=== PATIENT | male | born 1980 ===

== ENCOUNTER 2016-12-06 10:53 | Observation (INO) | payer OTHER ==
[~2016-12-06] VITALS: Ht 180.3 cm; Wt 77.1 kg
--- NOTE | 2016-12-06 11:08 | NUR ---
C/O MID- EPIGASTRIC PAIN, WITH NASUEA AND VOMITING X 6 SINCE LAST PM. NO DIARRHEA, STATES HE IS NOT PASSING GAS.
--- NOTE | 2016-12-06 11:33 | NUR ---
APPRECIATE TRIAGE NOTE. PT TO [facility]. THAI STOUT TO BEDSIDE FOR EVAL.
--- NOTE | 2016-12-06 11:51 | ED GI/GU/ABDOMINAL COMPLAINT ---
History of Present Illness General Chief Complaint: Abdominal Pain/Flank Pain Stated Complaint: ABD PAIN ,NAUSEA, VOMITING Source: patient, family Exam Limitations: no limitations Allergies Coded Allergies: No Known Drug Allergies (12/06/16) Reconcile Medications No Known Home Medications Triage Note: C/O MID- EPIGASTRIC PAIN, WITH NASUEA AND VOMITING X 6 SINCE LAST PM. NO DIARRHEA, STATES HE IS NOT PASSING GAS. Triage Nurses Notes Reviewed? 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 He states he has had similar episodes of this in the past that occur every 6 months over the last few years. He started getting a burning epigastric pain that is nonradiating, has approximately 12-24 hours of vomiting and abdominal pain and distention and then symptoms subside. The episode that started yesterday with similar to his previous episodes, sudden onset of abdominal pain, vomited approximately 6 times , unable to eat or drink, has not had a bowel movement since yesterday, he has not passed gas. Symptoms occurred after eating spicy food however does not always occur after eating spicy food and He tried Pepcid without relief. He denies any fever or flulike illness, no pain radiating into the chest or into the shoulders, no pain radiating into the back. No previous abdominal surgeries. He states that prior to these episodes he gets abnormal stool when he feels constipated and stools become smaller and harder to pass, which was the case 2 days ago as well prior to these symptoms starting. He is nauseous at this time, symptoms are moderate to severe (NANCY CASTANEDA) Vital Signs & Intake/Output Vital Signs & Intake/Output Vital Signs Date Time Temp Pulse Resp B/P Pulse O2 O2 Flow FiO2 Ox Delivery Rate 12/06 1618 69 18 146/87 97 Room Air 12/06 1108 98.4 96 18 129/84 100 Room Air Past History Travel History Traveled to [place] past 21 day No Medical History Any Pertinent Medical History? see below for history Neurological: NONE EENT: NONE Cardiovascular: NONE Respiratory: NONE Gastrointestinal: NONE Hepatic: NONE Renal: NONE Musculoskeletal: NONE Psychiatric: NONE Endocrine: NONE Surgical History Surgical History: none Psychosocial History What is your primary language Bulgarian Tobacco Use: Never used ETOH Use: denies use Family History Hx Contributory? No (NANCY CASTANEDA) Review of Systems Review of Systems Constitutional: Reports: see HPI. EENTM: Reports: no symptoms. Respiratory: Reports: no symptoms. Cardiovascular: Reports: no symptoms. GI: Reports: see HPI. Genitourinary: Reports: no symptoms. Musculoskeletal: Reports: no symptoms. Skin: Reports: no symptoms. Neurological/Psychological: Reports: no symptoms. Hematologic/Endocrine: Reports: no symptoms. Immunologic/Allergic: Reports: no symptoms. All Other Systems: Reviewed and Negative (NANCY CASTANEDA) Physical Exam Physical Exam General Appearance: well developed/nourished Head: atraumatic, normal appearance Eyes: Bilateral: normal appearance, PERRL. Ears, Nose, Throat, Mouth: hearing grossly normal, DRY MUCOUS MEMBRANES Neck: normal inspection Respiratory: normal breath sounds, chest non-tender, no respiratory distress Cardiovascular: regular rate/rhythm Gastrointestinal: DECREASED BOWEL SOUNDS, TENDERNESS IN THE EPIGASTRIUM, NOTICED DISTENTION, NO GUARDING, NO ORGANOMEGALY Back: normal inspection Extremities: normal range of motion, evidence of injury Neurologic/Psych: no motor/sensory deficits, awake, alert, oriented x 3, normal mood/affect Skin: warm/dry, pallor Core Measures ACS in differential dx? No Severe Sepsis Present: No Septic Shock Present: No (NANCY CASTANEDA) Progress Differential Diagnosis: AAA, AMI, appendicitis, biliary colic, bowel obstruction , colon cancer, cholecystitis, diverticulitis, epididymitis, esophageal varices, gastritis, hepatitis, hernia, hemorrhoids, ischemic bowel, inflamm bowel dis, Joanne-Yesy tear, orchitis, pancreatitis, prostatitis, peptic ulcer, PUD/GERD, perforated viscous, pyelonephritis, SBO, STD, testicular torsion, ureterolithiasis, urinary retention, urethritis, UTI/pyelo Diagnostic Imaging: Viewed by Me: CT Scan. Discussed w/RAD: CT Scan. Radiology Impression: PATIENT: JEFF PISANO PRESENT AGE: 36 PATIENT ACCOUNT NO: [id number] : 81 LOCATION: [facility] ORDERING PHYSICIAN: NANCY ANDRE SERVICE DATE: 12/06/161149 EXAM TYPE: CAT - CT ENTEROGRAPHY EXAMINATION: CT ENTEROGRAPHY WITH CONTRAST CLINICAL INFORMATION: Abdominal pain. Nausea and vomiting with epigastric pain. COMPARISON: None. TECHNIQUE: Multidetector volumetric imaging of the abdomen and pelvis was performed after administration of 95 mL of Optiray 320 IV contrast. 1300 mL of volumen was also ingested prior to the examination. Coronal and sagittal reformatted images were obtained at the technologist workstation. FINDINGS: The lung bases are clear. The visualized cardiac structures are unremarkable. The liver is normal in size, shape, and attenuation. No focal lesion or intrahepatic biliary ductal dilatation. The gallbladder is unremarkable. The spleen, adrenal glands, and pancreas are unremarkable. The kidneys demonstrate symmetric nephrograms. No hydronephrosis or nephrolithiasis. No perinephric stranding. The ureters are decompressed. The bladder is unremarkable. The stomach is distended with fluid, without wall thickening. The small bowel is not well distended with fluid, resulting in a suboptimal enterography evaluation. There is fecalization of the distal ileum suggesting slow transit. No evidence for small bowel wall thickening or inflammatory change. The appendix is abnormal. The appendix is dilated, measuring 1.3 cm in diameter. There is mild wall hyperemia with adjacent inflammatory change. Findings are consistent with acute appendicitis. No fluid collection or free air. No additional evidence for colonic wall thickening or inflammatory change. The prostate and seminal vesicles are unremarkable. No lymphadenopathy. The vascular structures are unremarkable. No acute or suspicious osseous abnormality. IMPRESSION: 1. Acute appendicitis. No free air or fluid collection. 2. Suboptimal CT enterography, as the stomach remains fluid-filled, without distention of the small bowel. No bowel wall thickening. Fecalization of the distal ileum is noted suggesting slow transit. This critical result was discussed with NANCY STOUT PA-C by telephone at 12/06/2016 1:35 PM and it was ascertained that the content and urgency of the report was understood at the time of direct communication. DICTATED BY: JACE HOLMAN, TANJA DATE/TIME DICTATED:12/06/161322 PHOTOGRAPHERS' MODEL:JOSÉ DATE/TIME TRANSCRIBED:12/06/161322 Initial ED EKG: none Comments: Treated with IV fluids, IV Zofran, IV Protonix [address] Lyons, will order CT enterography, question of Crohn's disease CT scan reviewed with radiologist, positive appendicitis, discussed with Dr. Schwarz, we'll treat with 3 g Unasyn IV and patient to OR this evening. Discussed with surgical PA, discussed with Dr. Alejo (NANCY CASTANEDA) Plan of Care: Orders Procedure Date/time Status Saline Lock 12/06 114 Active PROTHROMBIN TIME 12/06 1141 Complete LIPASE 12/06 1141 Complete COMPREHENSIVE METABOLIC PANEL 12/06 1141 Complete CBC WITHOUT DIFFERENTIAL 12/06 1141 Complete AMYLASE 12/06 1141 Complete URINALYSIS 12/06 1111 Complete Laboratory Tests 12/06/16 1247: Urine Color YEL, Urine Clarity CLEAR, Urine pH 7.0, Ur Specific [place] 1.010, Urine Protein NEG, Urine Ketones NEG, Urine Nitrite NEG, Urine Bilirubin NEG, Urine Urobilinogen 0.2, Ur Leukocyte Esterase NEG, Ur Microscopic SEDIMENT EXAMINED, Urine RBC 1-3, Ur Epithelial Cells FEW, Urine Hemoglobin TRACE-LYSED H, Urine Glucose NEG 12/06/16 1147: Anion Gap 16, Estimated GFR > 60, BUN/Creatinine Ratio 13.8, Glucose 121 H, Calcium 9.9, Total Bilirubin 1.0, AST 25, ALT 42, Alkaline Phosphatase 113, Total Protein 8.3 H, Albumin 4.9, Globulin 3.4, Albumin/Globulin Ratio 1.4, Amylase 55, Lipase 62, PT 12.7 H, INR 1.21 H, CBC w Diff NO MAN DIFF REQ, RBC 5.32, MCV 86.4, MCH 28.9, RDW 13.7, MPV 7.3 L, Gran % 87.0 H, Lymphocytes % 8.4 L, Monocytes % 3.7, Eosinophils % 0.1, Basophils % 0.8, Absolute Granulocytes 9.9 H, Absolute Lymphocytes 1.0 L, Absolute Monocytes 0.4, Absolute Eosinophils 0, Absolute Basophils 0.1, PUBS MCHC 33.5 Departure Departure Disposition: STILL A PATIENT Condition: Stable Clinical Impression Primary Impression: Appendicitis Qualifiers: Appendicitis type: acute appendicitis Acute appendicitis type: unspecified acute appendicitis type Qualified Code: K35.80 - Unspecified acute appendicitis Referrals: PATIENT HAS NO PRIMARY CARE DR (PCP/Family) Departure Forms: Customer Survey General Discharge Information Prescriptions: Current Visit Scripts No Known Home Medications OR/GI Note Spoke With: MANINDER HOLMAN,MICHELLE De Guzman ED Treatment Decision: JEFF PISANO requires urgent operative management or an emergent procedure that cannot be performed in the Emergency Room setting. to OR for appendectomy Transport To: [facility] (NANCY CASTANEDA) PA/CRIMINAL JUSTICE INSTRUCTOR Co-Sign Statement Statement: ED Attending supervision documentation- [x] I saw and evaluated the patient. I have also reviewed all the pertinent lab results and diagnostic results. I agree with the findings and the plan of care as documented in the PA's/CRIMINAL JUSTICE INSTRUCTOR's documentation. [] I have reviewed the ED Record and agree with the PA's/CRIMINAL JUSTICE INSTRUCTOR's documentation. [] Additions or exceptions (if any) to the PAs/CRIMINAL JUSTICE INSTRUCTOR's note and plan are summarized below: [] (BRITNI HOLMAN,SALLY Chapa) Critical Care Note Critical Care Note Critical Care Time: 30-74 min (NANCY CASTANEDA)
[2016-12-06 11:58] LABS: ABSOLUTE BASOPHIL COUNT 0.1 /CUMM (0.0-0.2); ABSOLUTE EOSINOPHIL COUNT 0 /CUMM (0.0-0.7); ABSOLUTE GRANULOCYTE CT 9.9 /CUMM (1.4-6.5); ABSOLUTE MONOCYTE COUNT 0.4 /CUMM (0.10-0.60); BASOPHIL % 0.8 % (0.0-2.0); EOSINOPHIL % 0.1 % (0-5); HEMATOCRIT 45.9 % (42-52); MEAN CORPUSCULAR HGB 28.9 PG (27.0-31.0); MEAN CORPUSCULAR HGB CONC 33.5 G/DL (33.0-37.0); MEAN CORPUSCULAR VOLUME 86.4 FL (80.0-94.0); MEAN PLATELET VOLUME 7.3 FL (7.4-10.4); PLATELET COUNT 255 /CUMM (130-400); RBC DISTRIBUTION WIDTH 13.7 % (11.5-14.5); RED BLOOD CELL CT 5.32 /CUMM (4.70-6.10); WHITE BLOOD CELL COUNT 11.4 /CUMM (4.8-10.8)
[2016-12-06 12:06] LABS: PT 12.7 SEC (9.4-12.5)
--- NOTE | 2016-12-06 13:07 | NUR ---
PT TO CAT SCAN VIA STRETCHER.
--- NOTE | 2016-12-06 13:39 | CT SCAN REPORT ---
EXAMINATION: CT ENTEROGRAPHY WITH CONTRAST CLINICAL INFORMATION: Abdominal pain. Nausea and vomiting with epigastric pain. COMPARISON: None. TECHNIQUE: Multidetector volumetric imaging of the abdomen and pelvis was performed after administration of 95 mL of Optiray 320 IV contrast. 1300 mL of volumen was also ingested prior to the examination. Coronal and sagittal reformatted images were obtained at the technologist workstation. FINDINGS: The lung bases are clear. The visualized cardiac structures are unremarkable. The liver is normal in size, shape, and attenuation. No focal lesion or intrahepatic biliary ductal dilatation. The gallbladder is unremarkable. The spleen, adrenal glands, and pancreas are unremarkable. The kidneys demonstrate symmetric nephrograms. No hydronephrosis or nephrolithiasis. No perinephric stranding. The ureters are decompressed. The bladder is unremarkable. The stomach is distended with fluid, without wall thickening. The small bowel is not well distended with fluid, resulting in a suboptimal enterography evaluation. There is fecalization of the distal ileum suggesting slow transit. No evidence for small bowel wall thickening or inflammatory change. The appendix is abnormal. The appendix is dilated, measuring 1.3 cm in diameter. There is mild wall hyperemia with adjacent inflammatory change. Findings are consistent with acute appendicitis. No fluid collection or free air. No additional evidence for colonic wall thickening or inflammatory change. The prostate and seminal vesicles are unremarkable. No lymphadenopathy. The vascular structures are unremarkable. No acute or suspicious osseous abnormality. IMPRESSION: 1. Acute appendicitis. No free air or fluid collection. 2. Suboptimal CT enterography, as the stomach remains fluid-filled, without distention of the small bowel. No bowel wall thickening. Fecalization of the distal ileum is noted suggesting slow transit. This critical result was discussed with NANCY STOUT PA-C by telephone at 12/06/2016 1:35 PM and it was ascertained that the content and urgency of the report was understood at the time of direct communication.
--- NOTE | 2016-12-06 13:48 | NUR ---
THAI STOUT TO BEDSIDE TO DISCUSS RESULTS AND POC.
--- NOTE | 2016-12-06 14:00 | NUR ---
PT MOVED TO ROOM 21 FOR EVALUATION AND SURGICAL PREP FOR THE OR.
--- NOTE | 2016-12-06 14:16 | History & Physical Pre-Op ---
General Information and HPI History of Present Illness: CC: abdominal pain HPI: 36 yo otherwise healthy nonsmoker nondiabetic no chronic illness or meds, had something spicy for lunch yesterday and afterwards had some epigastric pain which she's had before and thought it would subside but it didn't so he came to the ER, initially he vomited several times but no fevers sweats or chills no recent flulike symptoms, it has subsided with IV analgesics, no FHx of appendix or other intestinal problems. Otherwise no changes bowel habits, weight or appetite. I've reviewed the [facility]. No history of GERD, PUD, bleeding problems, heart disease or issues with anesthesia. Family history none, no heart disease or cancer, past medical history none, no known liver lung kidney heart or thyroid disease, surgical history none. Allergies/Medications Allergies: Coded Allergies: No Known Drug Allergies (12/06/16) Home Med list No Known Home Medications Past History Medical History Neurological: NONE EENT: NONE Cardiovascular: NONE Respiratory: NONE Gastrointestinal: NONE Hepatic: NONE Renal: NONE Musculoskeletal: NONE Psychiatric: NONE Endocrine: NONE Surgical History Pertinent Surgical History: none Past Family/Social History Psychosocial History ETOH Use: denies use Review of Systems Review of Systems: Constitutional: No fever, sweats or weight loss ENMT: No sore throat Cardiovascular: No chest pain, palpitations or leg swelling Respiratory: No shortness of breath, cough, or sputum or dyspnea on exertion GI: No GERD or bleeding per rectum : No dysuria or hematuria Musculoskeletal: No new muscle weakness, bone or joint pain Skin / Breast: No jaundice, rashes or itching Psychiatric: No history of drug or alcohol abuse no depression or anxiety Hematologic / lymphatic system: No problems with excessive bleeding, bruising, or blood clots Exam & Diagnostic Data Last 24 Hrs of Vital Signs/I&O I reviewed Vital Signs Date Time Temp Pulse Resp B/P Pulse O2 O2 Flow FiO2 Ox Delivery Rate 12/06 1108 98.4 96 18 129/84 100 Room Air I reviewed Intake & Output 12/06 1600 12/06 0800 12/06 0000 Intake Total 1000 Output Total Balance 1000 Intake, IV 1000 Patient 170 lb Weight Physical Exam: Constitutional: pleasant, no acute distress, conversant Eyes: sclera anicteric ENMT: ears and nose atraumatic, moist mucous membranes, good dentition, no lip lesions Neck: Supple, trachea is midline, no cervical or supraclavicular adenopathy and no palpable thyromegaly Cardiovascular: S1, S2, no murmurs, no peripheral edema Respiratory: clear to auscultation with normal respiratory effort and no intercostal retractions GI: abdomen soft, nontender after toradol, was RLQ, nondistended, no palpable hepatosplenomegaly Extremities / lymphatics: symmetrically warm, free range of motion no peripheral edema, no cervical, supraclavicular, axillary, or inguinal adenopathy Musculoskeletal: Normal gait and station, no digital cyanosis, good muscle strength and tone no atrophy, motor grossly 5 out of 5 throughout Skin: no jaundice, no rashes warm, nondiaphoretic, no areas of erythema or induration Psychiatric: mood and affect are appropriate and alert and oriented to person place and time Last 24 Hrs of Labs/Gilbert: I reviewed Laboratory Tests 12/06/16 1247: Urine Color YEL, Urine Clarity CLEAR, Urine pH 7.0, Ur Specific [place] 1.010, Urine Protein NEG, Urine Ketones NEG, Urine Nitrite NEG, Urine Bilirubin NEG, Urine Urobilinogen 0.2, Ur Leukocyte Esterase NEG, Ur Microscopic SEDIMENT EXAMINED, Urine RBC 1-3, Ur Epithelial Cells FEW, Urine Hemoglobin TRACE-LYSED H, Urine Glucose NEG 12/06/16 1147: Anion Gap 16, Estimated GFR > 60, BUN/Creatinine Ratio 13.8, Glucose 121 H, Calcium 9.9, Total Bilirubin 1.0, AST 25, ALT 42, Alkaline Phosphatase 113, Total Protein 8.3 H, Albumin 4.9, Globulin 3.4, Albumin/Globulin Ratio 1.4, Amylase 55, Lipase 62, PT 12.7 H, INR 1.21 H, CBC w Diff NO MAN DIFF REQ, RBC 5.32, MCV 86.4, MCH 28.9, RDW 13.7, MPV 7.3 L, Gran % 87.0 H, Lymphocytes % 8.4 L, Monocytes % 3.7, Eosinophils % 0.1, Basophils % 0.8, Absolute Granulocytes 9.9 H, Absolute Lymphocytes 1.0 L, Absolute Monocytes 0.4, Absolute Eosinophils 0, Absolute Basophils 0.1, PUBS MCHC 33.5 Assessment/Plan Assessment/Plan: Studies reviewed the CT scan from today on PACS myself enterography it shows a dilated appendix more edematous at tip. Impression is acute appendicitis. I explained to the patient that this is a potentially life-threatening infection for which I recommend an appendectomy. I feel antibiotics often alone are not enough and sometimes there is an occult malignancy. The severity of infection is related to the chance of perforation which usually increases after about 24 hours fortunately the patient is presenting earlier. Depending on what we find intraoperatively they may be discharged the same day or may need to stay for more IV antibiotics, at depends. I also discussed the possibility of a postoperative infection whether superficial or deep, this is also related to the initial severity and may also appear even a week later after an initial interval of well-being during the recovery. I explained the operation we usually do it laparoscopically rarely converting to open, depending on the amount of inflammation and whether the anatomy is very unusual all to avoid inadvertent injury to surrounding surrounding structures such as bowel and blood vessels and ureter. We also discussed the potential risks, benefits and alternatives to the procedure and surgery in general, issues that included but were not limited to, anesthetic risks hemorrhage requiring transfusion, the risk of transfusion itself, infection, heart attack, stroke, . As Ranked By This Provider Problem List: 1. Appendicitis
--- NOTE | 2016-12-06 14:30 | NUR ---
UNASYN GTT RUNNING PER EMAR. LIGHTS DIMMED FOR COMFORT. CALL RYDER IN REACH. EXTRA BLANKETS PROVIDED
--- NOTE | 2016-12-06 17:30 | NUR ---
MEDICATED WITH TORADOL 30MG PER EMAR FOR PAIN 04/10. PT COMPLETING PRE-OP SCRUB AT THIS TIME.
--- NOTE | 2016-12-06 19:13 | NUR ---
UNASYN INITIATED PER EMAR. PT SENT TO OR VIA STRETCHER AT THIS TIME.
--- NOTE | 2016-12-06 22:00 | Admission Core Measures ---
Admission Lab Results I reviewed the following labs: Laboratory Tests 12/06 12/06 1247 1147 Chemistry Sodium (137 - 145 mmol/L) 137 Potassium (3.5 - 5.1 mmol/L) 4.6 Chloride (98 - 107 mmol/L) 95 L Carbon Dioxide (22 - 30 mmol/L) 27 Anion Gap (5 - 16) 16 BUN (9 - 20 mg/dL) 11 Creatinine (0.7 - 1.2 mg/dL) 0.8 Estimated GFR (>60 ml/min) > 60 BUN/Creatinine Ratio (7 - 25 %) 13.8 Glucose (65 - 99 mg/dL) 121 H Calcium (8.4 - 10.2 mg/dL) 9.9 Total Bilirubin (0.2 - 1.3 mg/dL) 1.0 AST (17 - 59 U/L) 25 ALT (21 - 72 U/L) 42 Alkaline Phosphatase (< 127 U/L) 113 Total Protein (6.3 - 8.2 g/dL) 8.3 H Albumin (3.5 - 5.0 g/dL) 4.9 Globulin (1.9 - 4.2 gm/dL) 3.4 Albumin/Globulin Ratio (1.1 - 2.2 %) 1.4 Amylase (30 - 110 U/L) 55 Lipase (23 - 300 U/L) 62 Coagulation PT (9.4 - 12.5 SEC) 12.7 H INR (0.90 - 1.17) 1.21 H Hematology CBC w Diff NO MAN DIFF REQ WBC (4.8 - 10.8 /CUMM) 11.4 H RBC (4.70 - 6.10 /CUMM) 5.32 Hgb (14.0 - 18.0 G/DL) 15.4 Hct (42 - 52 %) 45.9 MCV (80.0 - 94.0 FL) 86.4 MCH (27.0 - 31.0 PG) 28.9 RDW (11.5 - 14.5 %) 13.7 Plt Count (130 - 400 /CUMM) 255 MPV (7.4 - 10.4 FL) 7.3 L Gran % (42.2 - 75.2 %) 87.0 H Lymphocytes % (20.5 - 51.1 %) 8.4 L Monocytes % (1.7 - 9.3 %) 3.7 Eosinophils % (0 - 5 %) 0.1 Basophils % (0.0 - 2.0 %) 0.8 Absolute Granulocytes (1.4 - 6.5 /CUMM) 9.9 H Absolute Lymphocytes (1.2 - 3.4 /CUMM) 1.0 L Absolute Monocytes (0.10 - 0.60 /CUMM) 0.4 Absolute Eosinophils (0.0 - 0.7 /CUMM) 0 Absolute Basophils (0.0 - 0.2 /CUMM) 0.1 PUBS MCHC (33.0 - 37.0 G/DL) 33.5 Urines Urine Color (YEL,AMB,STR) YEL Urine Clarity (CLEAR) CLEAR Urine pH (5.0 - 8.0) 7.0 Ur Specific [place] (1.001 - 1.035) 1.010 Urine Protein (NEG,<30 MG/DL) NEG Urine Ketones (NEG) NEG Urine Nitrite (NEG) NEG Urine Bilirubin (NEG) NEG Urine Urobilinogen (0.1 - 1.0 EU/dl) 0.2 Ur Leukocyte Esterase (NEG) NEG Ur Microscopic SEDIMENT EXAMINED Urine RBC (0 - 5 /HPF) 1-3 Ur Epithelial Cells (NONE,FEW) FEW Urine Hemoglobin (NEG) TRACE-LYSED H Urine Glucose (N MG/DL) NEG Acute Coronary Syndrome Inclusion Criteria ACS Diagnosis No Inpatient Core Measures LDL Reminder: If No, please order W/I first 24hr of stay Congestive Heart Failure Inclusion Criteria CHF Diagnosis No Cerebrovascular accident Inclusion Criteria CVA/TIA Diagnosis No Inpatient Core Measures Bedside Swallow Eval Reminder: If BSE failed, place ST order Antithrombotic Reminder: Order Antithrombotic Medication by end of day 2 Antithrombotic Reminder: Document Reason Antithrombotic Not ordered by end of day 2 AFIB/Flutter Reminder: If Present, add to problem list AFIB/Flutter Reminder: Order Anticoag Medication for pts with AFIB/Flutter Atherosclerosis Reminder: If Present, add to problem list LDL Reminder: If No, please order W/I first 24hr of stay PT Order Reminder: If No, please order Venous thromboembolism Inpatient Core Measures VTE Risk Factors: Surgery VTE Prophylaxis Ordered Inpt Mechanical (ALPS[facility]TEDS) [facility] prophylaxis d/t No contraindications No VTE Pharm Prophylaxis d/t No contraindications Inclusion Criteria - Per Current guidelines, there needs to be overlap - treatment for the first 5 days of Warfarin therapy. - Parenteral Anticoagulation (IV or SC) needs to be - given along with Warfarin therapy. VTE Diagnosis No VTE Type NONE VTE Confirmed by (Test) NONE Problem List As ranked by this Provider includes Assessment & Plan 1. Appendicitis HOME MEDS Home Med List No Known Home Medications
--- NOTE | 2016-12-06 23:26 | Patient Discharge Instructions ---
Discharge Instructions General Discharge Information You were seen/treated for: Acute appendicitis You had these procedures: Laparoscopic appendectomy Watch for these problems: Significantly increased pain, nausea, temperatures Increased redness or drainage from around the incisions No bath, but you may shower: Yes Other wound care: In 24 hours remove Band-Aids leading white strips intact until seen by M.D. or if they fall off He may shower regularly but no bath or swimming Diet Continue normal diet: Yes Activity Activity Self Limited: Yes Pounds, do NOT lift more than: 10 Other activity limits: No driving or operating heavy machinery while taking narcotics Acute Coronary Syndrome Inclusion Criteria At DC or during hospital stay patient has or had the following: ACS DIAGNOSIS No Discharge Core Measures Meds if any: Prescribed or Continued at Discharge Meds if any: NOT Prescribed or Continued at Discharge Congestive Heart Failure Inclusion Criteria At DC or during hospital stay patient has or had the following: CHF DIAGNOSIS No Discharge Core Measures Meds if any: Prescribed or Continued at Discharge Meds if any: NOT Prescribed or Continued at Discharge Cerebrovascular accident Inclusion Criteria At DC or during hospital stay patient has or had the following: CVA/TIA Diagnosis No Discharge Core Measures Meds if any: Prescribed or Continued at Discharge Meds if any: NOT Prescribed or Continued at Discharge Venous thromboembolism Inclusion Criteria VTE Diagnosis No VTE Type NONE VTE Confirmed by (Test) NONE Discharge Core Measures - Per Current guidelines, there needs to be overlap - treatment for the first 5 days of Warfarin therapy. - If discharged on Warfarin prior to 5 days of - overlap therapy, the patient will need to be - assessed for post discharge needs including - *Post discharge parental anticoagulation - *Warfarin and/or parental anticoagulation education - *Follow up date to check INR post discharge At least 5 days overlap therapy as Inpatient No Meds if any: Prescribed or Continued at Discharge Note: Overlap Therapy is Warfarin and Anticoagulant Meds if any: NOT Prescribed or Continued at Discharge
--- NOTE | 2016-12-06 23:41 | PN- General Surgery ---
Subjective Subjective: The patient was seen this evening postoperatively. He reports being comfortable at the current time with no pain. He has no other complaints and denies any nausea. Objective Vital Signs and I&Os Vital Signs Date Time Temp Pulse Resp B/P Pulse O2 O2 Flow FiO2 Ox Delivery Rate 12/06 191 98.2 85 18 129/80 99 Room Air Room Air 12/06 1618 69 18 146/87 97 Room Air 12/06 1108 98.4 96 18 129/84 100 Room Air Intake & Output 12/06 0812/06 0000 12/05 1600 12/05 0800 12/05 0000 Intake Total 1000 Output Total Balance 1000 Intake, IV 1000 Patient 170 lb Weight Physical Exam: Gen.: Alert and obvious distress Skin: Warm and dry Abdomen: Soft, appropriate incisional tenderness, bowel sounds sluggish. Port sites are clean, dry, and intact. Extremities: Bilateral lower extremities are warm without calf tenderness or edema. Assessment/Plan Assessment/Plan Assessment: 36-year-old male status post lap scopic appendectomy. The patient is progressing as expected and his pain is under adequate control. Plan: Advance diet as tolerated Follow-up morning laboratory studies 1 dose of postoperative antibiotics Continue current pain regiment Out of bed and ambulate GI and DVT prophylaxis Core Measures/Miscellaneous Venous Thromboembolism VTE Risk Factors: Surgery VTE Contraindications: No Contraindications VTE Prophylaxis Ordered Inpt Mechanical (ALPS/TEDS) VTE Diagnosis: No VTE Type: NONE VTE Confirmed by (Test): NONE Beta Yojana Is Beta Yojana a Home Med? No Antibiotics Is Patient on Antibiotics? Yes If Yes: infection
[2016-12-06 23:48] VITALS: BP 122/78
--- NOTE | 2016-12-07 00:03 | NUR ---
PT ARRIVED TO FLOOR AT 2300 VIA STRETCHER WITH AT HIS SIDE. PT AOX3, 1LNC @100%, INDEPENDANT. D/C OXYGEN. STARTED IV FLUIDS ORDERED. VSS. IV #20 LF FLUSHES WELL. PLACED ALPS ORDERED. 3 BANDIAD DRESSINGS TO ABDOMEN C/D/I. PT HAS +BS/- FLATUS AT THIS TIME. PT STATED PAIN A 0 OUT OF 10. ORIENTED PT TO CALL RYDER. PLACED 2 BAGS OF CLOTHES IN LOWER CABINET. PT LEFT FOR EVENING. PT DROWSY AND WANTS TO SLEEP AT THIS TIME. WILL CONTINUE TO MONITOR.
[2016-12-07] MEDS ORDERED: PERCOCET 5-3251 EACH PO (06:57)
--- NOTE | 2016-12-07 07:01 | PN- General Surgery ---
Subjective Subjective: pod#1 s/p lap appy cmfrtable this am denies cp, sob,n n+v Objective Vital Signs and I&Os Vital Signs Date Time Temp Pulse Resp B/P Pulse O2 O2 Flow FiO2 Ox Delivery Rate 12/06 2348 97.6 68 18 122/78 100 Room Air Room Air 12/06 1914 98.2 85 18 129/80 99 Room Air Room Air 12/06 1618 69 18 146/87 97 Room Air 12/06 1108 98.4 96 18 129/84 100 Room Air Intake & Output 12/07 0800 12/07 0000 12/06 1600 12/06 0800 12/06 0000 12/05 1600 Intake Total 700 1000 Output Total 2700 Balance -2000 1000 Intake, IV 700 1000 Output, Urine 2700 Patient 170 lb 170 lb Weight Physical Exam: cv:rrr lungs: clear abd: +bs, soft no guarding, drsgs dry ext: warm, distal cms intact Assessment/Plan Assessment/Plan surgical stable plan f/u am labs when germán po's d/c home f/u dr bustillos Core Measures/Miscellaneous Venous Thromboembolism VTE Risk Factors: Surgery VTE Contraindications: No Contraindications VTE Prophylaxis Ordered Inpt Mechanical (ALPS/TEDS) VTE Diagnosis: No VTE Type: NONE VTE Confirmed by (Test): NONE Beta Yojana Is Beta Yojana a Home Med? No Antibiotics Is Patient on Antibiotics? Yes If Yes: infection
[2016-12-07 07:55] LABS: ABSOLUTE BASOPHIL COUNT 0 /CUMM (0.0-0.2); ABSOLUTE EOSINOPHIL COUNT 0 /CUMM (0.0-0.7); ABSOLUTE GRANULOCYTE CT 8.9 /CUMM (1.4-6.5); ABSOLUTE LYMPH COUNT 0.9 /CUMM (1.2-3.4); ABSOLUTE MONOCYTE COUNT 0.6 /CUMM (0.10-0.60); BASOPHIL % 0 % (0.0-2.0); EOSINOPHIL % 0 % (0-5); GRANULOCYTE % 85.3 % (42.2-75.2); MEAN CORPUSCULAR HGB 29.6 PG (27.0-31.0); MEAN CORPUSCULAR HGB CONC 34.1 G/DL (33.0-37.0); MEAN CORPUSCULAR VOLUME 86.8 FL (80.0-94.0); MEAN PLATELET VOLUME 7.8 FL (7.4-10.4); PLATELET COUNT 213 /CUMM (130-400); RBC DISTRIBUTION WIDTH 13.9 % (11.5-14.5); RED BLOOD CELL CT 4.73 /CUMM (4.70-6.10)
[2016-12-07 08:13] VITALS: BP 110/80
[2016-12-07 09:17] LABS: WHITE BLOOD CELL COUNT 10.4 /CUMM (4.8-10.8)
--- NOTE | 2016-12-07 12:39 | Operative Report ---
Operative/Inv Procedure Report Surgery Date: 12/06/16 Name of Procedure: Laparoscopic appendectomy Pre-Operative Diagnosis: Acute Appendicitis Post-Operative Diagnosis: Same, with possibly a chronic component Estimated Blood Loss: scant Surgeon/Support Services Tech: MANINDER HOLMAN,MICHELLE ANDRE Anesthesia: general endotracheal tube Operative/Procedure Note Note: Patient was placed on the OR table in the supine position. After successful induction of general anesthesia the patient's abdomen was prepped clipped and draped in the usual sterile fashion The left arm was tucked. Local anesthetic was injected at the top of the umbilicus and entry into the peritoneum was established via the open Francis technique: a one cm curved incision was made at the top of the umbilicus, the linea alba was secured between 2 pediatric Jef clamps and incised vertically, 0-Vicryl stay sutures were placed on each side and then while retracting upwards, the peritoneal layer was entered sharply, then through that small opening, using an S retractor acting like a shoehorn, a 10 mm blunt trocar was inserted obliquely to the right and secured with the stay sutures. The gas was turned on to maximum of 15 mm, two 5 mm dissecting ports were then inserted, one suprapubic and one left lower quadrant, laterally. We used a local anesthetic needle to guide their trajectories, particular attention was given to avoid injury to the bowel, the bladder and the epigastric vessels. Then our attention was directed to the right lower quadrant, the small bowel was swept superiorly and medially, revealing the base of the cecum, which had to be mobilized and reflected medially significantly this appendix was completely retrocecal fibrotic pointing up towards the liver. This inflamed appendix was then mobilized by it from the cecum and lateral and inferior peritoneal attachments using blunt dissection and cautery. Using a combination of a [place] dissector, peanut dissector and a C[place] clamp, a window was developed between the mesoappendix and the base of the appendix. This window is then used to divide the appendix at the base and the mesoappendix with a linear stapling device, separately, using an intestinal cartridge for the appendix and a vascular cartridge for the mesoappendix; the division of the appendix includes a small flange of cecal base. The appendix is lowered into an Endobag and set aside. The staple lines were checked for bleeding and small oozing was controlled with light zaps of the cautery. We deliberately irrigate the area including up by the liver and down in the pelvis, several rounds, checking the staple lines and each time to make sure that there is no ongoing bleeding. Next the instruments and the trochars and Endobag are removed, letting the gas out. We closed the umbilical fascial incision with a [id number] 0 vicryl suture, then the 3 skin incisions are closed with multiple interrupted subcuticular 4-0 Biosyn sutures, 3 for the umbilical, 1 each for the smaller ones, then covered with Mastisol, Steri-Strips and Band-Aids. Lap and sponge and sponge counts: correct Wound expectancy: infected IV fluids: crystalloid Complications: none Patient tolerated the procedure well was awakened and extubated and returned to the recovery room in satisfactory condition.
== END 2016-12-07 11:27 ==
LOC: ERH 10:53 → 2NB 19:45 → PACUH 19:45 → 2NB 22:46
PROVIDERS: Physician Assistant Surgical; ADMIT Surgery
DX: K35.80 Unspecified acute appendicitis (principal)
CPT/HCPCS: 6040; 36415; 74177; 81001; 82436; 88304; 96374; 96375; 96376; G0378; J1170; J1644; J1885; J2250; J2405; J3010; J7042